=== PATIENT | female | born 1975 | race Two or more races ===

== ENCOUNTER → 2019-08-03 | Emergency (ER) | payer OTHER ==
[~2019-08-03] VITALS: Ht 162.6 cm; Wt 81.6 kg
[~2019-08-03] MED LIST: AUMENTIN; DORADOL; MEDROLPACK PO; PANADOL
== END | disposition home or self-care (01) ==
LOC: ER 09:37
DX: H73.012 Bullous myringitis, left ear (principal)

== ENCOUNTER 2019-08-04 17:51 | Emergency (ER) | payer OTHER ==
[~2019-08-04] VITALS: Ht 162.6 cm; Wt 81.6 kg
[2019-08-04] MEDS ORDERED: DORADOL (20:28)
[2019-08-04] MEDS ORDERED: AUMENTIN (20:29)
[2019-08-04] MEDS ORDERED: PANADOL (20:29)
[2019-08-04] MEDS ORDERED: MEDROLPACK PO (22:46)
== END 2019-08-04 22:52 | disposition home or self-care (01) ==
LOC: ER 17:51
DX: H66.92 Otitis media, unspecified, left ear (principal)